=== PATIENT | female | born 1955 | race Caucasian/White ===

== ENCOUNTER 2020-01-20 12:30 | Inpatient (IN) | payer BC, MEDICARE ==
[2020-01-22 14:22] VITALS: BMI 33.4
[2020-01-24] MEDS ORDERED: metroNIDAZOLE-NS PMX 500 MG in SALINE 1 100ML.BAG IVPB PRN (05:00)
[2020-01-24] MEDS ORDERED: SCOPOLAMINE 1.5MG/72HR PATCH TRANSDERM ONE (05:49)
[2020-01-24] MEDS ORDERED: DEXAMETHASONE SOD PHOSPHATE 4 MG/ML 1 ML VIAL IV ONE (05:49)
[2020-01-24] MEDS ORDERED: ONDANSETRON 4 MG/2 ML VIAL IVP ONE ×2 (05:49→18:40)
[2020-01-24] MEDS ORDERED: MIDAZOLAM 2 MG/2 ML VIAL IV PRN (05:49)
[2020-01-24] MEDS ORDERED: HYDROmorphone 0.5 MG/0.5 ML SYRINGE IVP PRN (05:49)
[2020-01-24] MEDS ORDERED: HEPARIN SODIUM,PORCINE 5,000 UNIT/ML 1 ML VIAL SQ PRN ×2 (06:00→14:00)
[2020-01-24] MEDS: LACTATED RINGERS 1,000 ML IV SCH (13:30)
[2020-01-24 13:49] LABS: HCT 36.8 % (34.0-46.0); HGB 12.3 gm/dL (11.4-16.0); MCH 30.8 pg (25.0-35.0); MCHC 33.4 g/dL (31.0-37.0); MCV 92.3 fL (80.0-100.0); Mean Platelet Volume 6.5; Platelet Count 348 k/uL (150-450); RBC 3.98 m/uL (3.80-5.40); RDW 12.7 % (11.5-15.5); WBC 9.6 k/uL (3.8-10.6)
[2020-01-24 14:05] LABS: Potassium 3.9 mmol/L (3.5-5.1)
[2020-01-24] MEDS ORDERED: INDOCYANINE GREEN 25 MG VIAL IV ONE (14:18)
[2020-01-24] MEDS ORDERED: MIDAZOLAM 2 MG/2 ML VIAL ONE (14:18)
[2020-01-24] MEDS ORDERED: SUCCINYLCHOLINE CHLORIDE 100 MG/5 ML SYR IV ONE (14:18)
[2020-01-24] MEDS ORDERED: HYDROmorphone (PF) 1 MG/ML ONE (14:18)
[2020-01-24] MEDS ORDERED: ROCURONIUM 10 MG/ML (10 ML VIAL) IV ONE (14:18)
[2020-01-24] MEDS ORDERED: fentaNYL (PF) 50 MCG/ML 2 ML AMP ONE (14:18)
[2020-01-24] MEDS ORDERED: GLYCOPYRROLATE 0.2 MG/ML 2 ML VIAL ONE (14:18)
[2020-01-24] MEDS ORDERED: KETOROLAC 15 MG/ML 1 ML VIAL ONE (14:18)
[2020-01-24] MEDS ORDERED: NEOSTIGMINE 1 MG/ML 10 ML VIAL ONE (14:18)
[2020-01-24] MEDS ORDERED: LIDOCAINE 1% INJ 10MG/ML (20 ML MDV) ONE (14:18)
[2020-01-24] MEDS ORDERED: PROPOFOL 10 MG/ML 20 ML VIAL IV ONE (14:18)
[2020-01-24] MEDS ORDERED: LIDOCAINE 1%/EPI 1:200,000 MPF 10 ML VIAL SQ ONE ×2 (16:11)
[2020-01-24] MEDS ORDERED: BUPIVACAINE (PF) 0.25% 30 ML VIAL SQ ONE ×2 (16:11)
[2020-01-24] MEDS ORDERED: LACTATED RINGERS 1,000 ML IV ONE ×3 (16:15→19:00)
--- NOTE | 2020-01-24 17:22 | P.OP ---
Date of Procedure: 01/24/20 Preoperative Diagnosis: Sigmoid diverticular stricture Postoperative Diagnosis: Same Procedure(s) Performed: Cystoscopy with placement of 6-[place] Citizen ureteral catheter left Anesthesia: GIOVANA Surgeon: Mike Daniel Pathology: none sent Condition: stable Disposition: PACU Indications for Procedure: The patient is 64. She is in the operating suite see evening because of the need for a colectomy for severe sigmoid colonic diverticular stricture by Dr. Castellanos. Due to the severe stricture Dr. Castellanos is uncertain as to the exact location of the ureter does not wish to injure it. I've been asked to see the patient. There is no urologic history that I can obtain from the chart. The patient is asleep on the table. Description of Procedure: The patient is been previously anesthetized is on the operating table. When I arrived she is oriented in lithotomy position with cystoscopy. I pulled the Davidson catheter. I passed the 21-[place] Citizen cystoscope into the urethra is normal. The bladder tracey grossly unremarkable. The left ureteral orifice is easily identified. An 035 wires passed up the ureter into the region of the kidney. Dr. Castellanos feels the wire go through the ureter. I then over the wire pass a 6- [place] Citizen open-ended ureteral catheter with ease up. Dr. Castellanos feels the catheter go up the ureter. The cystoscope was removed. The ureteral catheter secured to the 16-[place] Citizen Davidson catheter placed in the bladder. Impression:no obvious injury of the ureter or bladder during this difficult surgical procedure. The ureteral catheter can be removed when it is deemed appropriate by Dr. Castellanos. No further urologic care should be required.
--- NOTE | 2020-01-24 18:00 | P.OP ---
Date of Procedure: 01/24/20 Preoperative Diagnosis: Diverticular stricture Postoperative Diagnosis: Diverticular stricture with dense pelvic adhesions Procedure(s) Performed: Attempted robotic sigmoid resection converted to open sigmoid resection Anesthesia: GIOVANA Surgeon: Pearl Castellanos Estimated Blood Loss (ml): 600 Pathology: other Condition: stable Disposition: PACU Indications for Procedure: The patient presented with a diverticular stricture Description of Procedure: The patient's taken to the operative suite where she is prepped and draped in the usual sterile manner under general endotracheal anesthetic. The abdomen was entered through with an optical trocar in the right mid abdomen. Pneumoperitoneum was established with CO2 gas. Sites are chosen for accessory trochars and these are laced through small skin incisions. The patient is placed into Trendelenburg position. The robot is then docked. She has some loops of small bowel adhered to the bladder and uterus. These are sharply taken down. The sigmoid colon is also densely adherent to the uterus and right tube and ovary. This tissue was attempted to be freed up. It was fairly dense a decision was made to start in the sigmoid colon more proximally and worked distally. An opening was made in the mesentery in the JAMISON stapler was placed and fired. The mesentery was taken down with harmonic scissors. Attempted to dissect the sigmoid off the tube and ovary and bleeding was encountered in the mesentery of the tube. It could not easily be controlled with the LigaSure type device. The sigmoid colon was also so stuck it wasn't going to be able to be dissected free robotically. Therefore she was undocked from the robot. The abdomen was entered through a Pfannenstiel incision. A Bookwalter retractor was placed. The small bowel was dissected free and packed out of the way in the upper abdomen. Then tediously the sigmoid colon is dissected free from the uterus, tube and ovary and pelvic sidewall. Dissection was carried out through the more distal portion of the sigmoid and off the back wall of the uterus. Dissection was carried out laterally. The ureter could not be definitively identified. Tediously the mesentery was dissected free. The sigmoidal vessels were clamped, cut and tied with 0 Vicryl suture. Dissection was then able to be carried out distally and a TA 60 was placed and fired. The specimen was passed off. The urologist, Dr. Daniel was consult intraoperatively and was kind enough to come in and place a stent in the right ureter. The ureter appeared intact and the stent was easily palpable. The proximal descending colon was then cleaned up of some mesentery and epiploic fat. A pursestring suture was placed and fired. The bowel size down nicely to 60. The anvil was placed into the proximal portion and the pursestring was tied down. Cystoscopy went down below and passed sizers and then the stapler. The attachment prong was advanced until the orange portion was seen. It was then attached to the anvil and closed down until the indicator was in the mid green portion. It was held for a minute. Fired and held for minute. It was then derotated and removed. Sterile saline was placed into the pelvis. The proximal colon was manually compressed and the distal segment of the bowel was insufflated with air multiple times showing an airtight anastomosis. The irrigant was suctioned out. A drain was placed in the pelvis and brought out through a trocar site. The fascia at the larger trocar sites was closed with 0 Vicryl. The skin incisions were closed with maycol. The peritoneum was closed with 0 Vicryl. The anterior fascia was closed with PDS. Pfannenstiel incision was closed with maycol. Sterile dressings were applied. She tolerated the procedure without difficulty and was taken recovery room in satisfactory condition. According to or personnel, all counts were correct.
[2020-01-24] MEDS ORDERED: NALOXONE 0.4 MG/ML 1 ML VIAL IV PRN (18:01)
[2020-01-24] MEDS ORDERED: HYDROmorphone 0.5 MG/0.5 ML SYRINGE IVP ONE ×2 (18:23→18:30)
[2020-01-24] MEDS: metroNIDAZOLE-NS PMX 500 MG in SALINE 1 100ML.BAG IVPB SCH (22:24)
[2020-01-24] MEDS: D5-0.45% NACL WITH KCL 20MEQ/L 1,000 ML IV SCH (22:24)
[2020-01-24] MEDS: HYDROmorphone 0.5 MG/0.5 ML SYRINGE IVP PRN (23:27)
[2020-01-24] MEDS: HEPARIN SODIUM,PORCINE 5,000 UNIT/ML 1 ML VIAL SQ SCH (23:37)
[2020-01-25] MEDS: LACTATED RINGERS 1,000 ML IV SCH (05:06)
[2020-01-25] MEDS: metroNIDAZOLE-NS PMX 500 MG in SALINE 1 100ML.BAG IVPB SCH (05:11)
[2020-01-25 06:43] LABS: Basophils % (A) 0 %; Eosinophils # (A) 0.1 k/uL (0-0.7); Eosinophils % (A) 0 %; HCT 29.7 % (34.0-46.0); HGB 10.1 gm/dL (11.4-16.0); Lymphocytes % (A) 7 %; MCH 31.1 pg (25.0-35.0); MCHC 33.9 g/dL (31.0-37.0); MCV 91.7 fL (80.0-100.0); Mean Platelet Volume 6.7; Monocytes # (A) 0.6 k/uL (0-1.0); Monocytes % (A) 4 %; Neutrophils # (A) 11.6 k/uL (1.3-7.7); Neutrophils % (A) 87 %; Platelet Count 305 k/uL (150-450); RBC 3.23 m/uL (3.80-5.40); RDW 12.3 % (11.5-15.5); WBC 13.3 k/uL (3.8-10.6)
[2020-01-25] MEDS: HYDROmorphone 0.5 MG/0.5 ML SYRINGE IVP PRN ×2 (06:51→14:33)
[2020-01-25] MEDS: D5-0.45% NACL WITH KCL 20MEQ/L 1,000 ML IV SCH ×2 (07:35→21:08)
[2020-01-25] MEDS: PANTOPRAZOLE 40 MG/10 ML VIAL IV SCH (07:35)
[2020-01-25] MEDS: HEPARIN SODIUM,PORCINE 5,000 UNIT/ML 1 ML VIAL SQ SCH ×3 (07:35→23:52)
[2020-01-25] MEDS: ONDANSETRON 4 MG/2 ML VIAL IVP PRN ×2 (07:53→14:33)
[2020-01-25 10:05] LABS: African American GFR (CKD) 90.9 (60.0-200.0); Anion Gap 6.9 mmol/L (4.00-12.00); Calcium 8.4 mg/dL (8.7-10.3); Carbon Dioxide 26.1 mmol/L (21.6-31.8); Non-African American GFR(CKD) 78.5 (60.0-200.0); Potassium 4.9 mmol/L (3.5-5.5)
[2020-01-25] MEDS ORDERED: SUMAtriptan succinate 50 MG TAB PO PRN (10:41)
[2020-01-25] MEDS ORDERED: ALBUTEROL NEBULIZED 2.5 MG/3 ML INHALATION PRN (10:41)
--- NOTE | 2020-01-25 12:44 | P.PN ---
Subjective Progress Note Date: 01/25/20 The patient is Postoperative day 1 sigmoid resection for diverticular stricture. She had a good night. She has a little nausea this morning. No chest pain or shortness of breath. Objective - Vital Signs Vital signs: Vital Signs Temp 99.0 F 01/25/20 08:00 Pulse 86 01/25/20 08:00 Resp 16 01/25/20 08:00 BP 130/80 01/25/20 08:00 Pulse Ox 90 L 01/25/20 08:00 Intake & Output 01/24/20 01/25/20 01/25/20 18:59 06:59 18:59 Intake Total 2950 800 Output Total 700 710 Balance 2250 90 Weight 77 kg 77 kg Intake: IV 2950 700 Oral 100 Output: Drainage 60 Abdomen 60 Urine 200 650 Uretheral (Davidson) 200 Estimated Blood Loss 500 Other: Voiding Method Indwelling Catheter - Constitutional General appearance: Present: cooperative, no acute distress - Respiratory Respiratory: bilateral: CTA, diminished (mildly bilaterally), negative: wheezing - Cardiovascular Rhythm: regular - Gastrointestinal General gastrointestinal: Present: decreased bowel sounds, soft Localized gastrointestinal: surgical scar: diffuse (Dressings are intact, clean and dry) - Labs CBC & Chem 7: 01/25/20 06:26 01/25/20 06:26 Labs: Abnormal Lab Results - Last 24 Hours (Table) 01/25/20 01/25/20 Range/Units 06:26 06:26 WBC 13.3 H (3.8-10.6) k/uL RBC 3.23 L (3.80-5.40) m/uL Hgb 10.1 L (11.4-16.0) gm/dL Hct 29.7 L (34.0-46.0) % Neutrophils # 11.6 H (1.3-7.7) k/uL Glucose 134 H (70-110) mg/dL Calcium 8.4 L (8.7-10.3) mg/dL Assessment and Plan (1) Diverticular stricture Current Visit: Yes Status: Acute Code(s): K56.699 - OTHER INTESTNL OBST UNSP TO PARTIAL VERSUS COMPLETE OBST SNOMED Code(s): 96144703 (2) Asthma Current Visit: Yes Status: Acute Code(s): J45.909 - UNSPECIFIED ASTHMA, UNCOMPLICATED SNOMED Code(s): 123196174 Plan: Diverticular stricture we will add Toradol for additional pain control. Add Reglan for some nausea. Bowel sounds are fairly good today. Encourage incentive spirometry. Encourage ambulation. DVT and ulcer prophylaxis. Progressing slowly. I will leave the catheter in today since there is little blood in the urine.
--- NOTE | 2020-01-25 13:48 | P.CONS ---
History of Present Illness - Reason for Consult Consult date: 01/25/20 Medical management Requesting physician: Pearl Castellanos - Chief Complaint Sigmoid resection for diverticular structure, asthma, hypothyroidism and re - History of Present Illness 63-year-old female with past medical history of asthma, hypothyroidism, migraine and recurrent diverticulitis who developed to have significant pain and discomfort with sign and symptom of diverticulitis was treated and watch she was seen Dr. Robbins back in September colonoscopy was done apparently showed severe diverticulitis patient ended up being sent for CT of the abdomen and pelvis came back with abscess from ruptured diverticuli. Patient was sent to the point to [facility] and spent 5 days on IV antibiotics and sent home on oral antibiotic for long time. Patient was seen Dr. Robbins for follow-up for to Dr. Castellanos continue to have sign and symptom of slight abdominal discomfort the left side patient ended up coming to yesterday for elective surgery which might start as a robotic for partial resection of the sigmoid ended up having open resection of the sigmoid with partial removal of diverticular structure. Patient done very well in recovery ended up being sent to the floor has been feeling much better today still nothing by mouth but no NG tube at this point. Review of Systems CONSTITUTIONAL: Well-developed no acute respiratory distress. EYES: No icterus sclerae, no conjunctivitis. EARS, NOSE, MOUTH, THROAT, and FACE: No sore throat, lymphadenopathy, carotid bruits or deformity. RESPIRATORY: No SOB cough or wheezes. History of asthma with no wheezes CARDIOVASCULAR: No CP, Palpitation, PND, Orthopnea, or angina. GASTROINTESTINAL: Significant abdominal pain from her surgical side still have drainage tube in with no bleeding. GENITOURINARY: Negative for Hematuria or UTI, no kidney stones. INTEGUMENT/BREAST: Negative for any muscular injury with mild osteoarthritis.. HEMATOLOGIC/LYMPHATIC: Negative for bleed or purpura. MUSCULOSKELTAL: Negative for Myalgia or arthralgia. NEURLOGICAL: History of migraine with no neural loss. BEHAVIORAL/PSYCH: Negative. ENDOCRINE: Negative. Past Medical History Past Medical History: Asthma, Thyroid Disorder Additional Past Medical History / Comment(s): migranes diverticulitis History of Any Multi-Drug Resistant Organisms: None Reported Past Surgical History: Appendectomy Additional Past Surgical History / Comment(s): thyroid left hemisphere removed, colonoscopy Past Anesthesia/Blood Transfusion Reactions: Postoperative Nausea & Vomiting (PONV) Past Psychological History: No Psychological Hx Reported Smoking Status: Former smoker Past Alcohol Use History: Occasional Past Drug Use History: None Reported - Past Family History Father Family Medical History: Cancer Additional Family Medical History / Comment(s): lung Medications and Allergies Home Medications Medication Instructions Recorded Confirmed Type Levothyroxine Sodium [Synthroid] 25 mcg PO DAILY 01/22/20 01/22/20 History Mometasone Inhalr 220 Mcg/Puff 1 puff INHALATION DAILY 01/22/20 01/22/20 History [Asmanex] SUMAtriptan SUCCINATE [Imitrex] 100 mg PO BID PRN 01/22/20 01/22/20 History Salmeterol 50 mcg [Serevent Diskus] 1 puff INHALATION ONCE 01/22/20 01/22/20 History Albuterol Sulfate [Proair Hfa] PRN 01/24/20 History Allergies Allergy/AdvReac Type Severity Reaction Status Date / Time No Known Allergies Allergy Verified 01/24/20 13:36 Physical Exam Vitals: Vital Signs Temp Pulse Pulse Pulse Resp BP BP 01/25/20 08:00 99.0 F 86 16 130/80 01/25/20 02:00 98.4 F 92 20 116/76 01/24/20 21:58 85 110/73 01/24/20 21:43 90 106/74 01/24/20 21:28 93 112/77 01/24/20 21:13 85 109/74 01/24/20 20:58 88 109/74 01/24/20 20:43 86 102/70 01/24/20 20:29 75 114/65 01/24/20 20:13 91 109/77 01/24/20 19:58 82 108/73 01/24/20 19:43 97.7 F 72 15 121/71 01/24/20 19:30 16 01/24/20 19:00 76 16 123/64 01/24/20 18:45 80 16 146/74 01/24/20 18:30 60 16 128/62 01/24/20 18:15 69 16 136/88 01/24/20 18:04 97.9 F 62 14 154/64 01/24/20 13:28 97.8 F 83 16 168/74 Pulse Ox 12/19/20 08:00 90 L 01/25/20 02:00 93 L 01/24/20 21:58 93 L 01/24/20 21:43 92 L 01/24/20 21:28 91 L 01/24/20 21:13 91 L 01/24/20 20:58 91 L 01/24/20 20:43 94 L 01/24/20 20:29 94 L 01/24/20 20:13 90 L 01/24/20 19:58 01/24/20 19:43 93 L 01/24/20 19:30 01/24/20 19:00 96 01/24/20 18:45 96 01/24/20 18:30 100 01/24/20 18:15 100 01/24/20 18:04 100 01/24/20 13:28 99 Intake and Output 01/24/20 01/25/20 01/25/20 22:59 06:59 14:59 Intake Total 2500 100 Output Total 750 660 Balance 1750 -560 Intake: IV 2500 Oral 100 Output: Drainage 60 Abdomen 60 Urine 250 600 Uretheral (Davidson) 200 Estimated Blood Loss 500 Other: Voiding Method Indwelling Catheter Weight 77 kg General Appearance: Alert, cooperative, no distress, appears stated age. Neck HEENT: Supple, no lymphadenopathy, no thyroid enlargement, no carotid bruits. Lungs: Clear to auscultation without crackles or wheezes no rhonchi, no deformity. Chest Wall: Chest wall normal expansion with deep inspiration no tenderness and no deformity was found on exam, no costochondral pain or discomfort. Heart: Regular rate and rhythm, S1, S2 normal, no murmur, rub or gallop. Back: Symmetric, no curvature, ROM normal, no CVA tenderness. Abdomen: Incision has lower abdominal surgical site with no sign of bleeding, right side has slight drainage tube and there is an incision smaller on the left side as well with no bleed. Extremities: Extremities normal, atraumatic, no cyanosis or edema. Pulses: 2+ and symmetric. Skin: Skin color, texture, tugor normal, no rashes or lesions. Neurologic: Alert oriented x3 cranial nerves II through XII intact, no motor deficit, no abnormal balance or gait. Results CBC & Chem 7: 01/25/20 06:26 01/25/20 06:26 Labs: Abnormal Lab Results - Last 24 Hours (Table) 01/25/20 01/25/20 Range/Units 06:26 06:26 WBC 13.3 H (3.8-10.6) k/uL RBC 3.23 L (3.80-5.40) m/uL Hgb 10.1 L (11.4-16.0) gm/dL Hct 29.7 L (34.0-46.0) % Neutrophils # 11.6 H (1.3-7.7) k/uL Glucose 134 H (70-110) mg/dL Calcium 8.4 L (8.7-10.3) mg/dL Assessment and Plan Assessment: 1 day 2 post sigmoid resection: Patient is doing well no nausea vomiting no NG tube at this point pain is well control patient Vicodin hemodynamic status very carefully watch has been stable. 2 severe diverticulitis with recurrent episode and found of diverticular st ructure post surgery doing well. 3 post acute diverticulitis with rupture and abdominal abscess post IV antibiotic for several weeks has done very well so far. 4 asthma: Patient will go back on her Serevent and albuterol inhaler. 5 hypothyroidism: Resume levothyroxine at 25 g daily. 6 history of migraine: With no flareup at this point continue Imitrex as needed. 7 DVT prophylaxis: Continue patient on heparin 5000 units subcu every 8 hours. 8 GI prophylaxis: Patient remain on pantoprazole 40 mg IV daily. CODE STATUS: Full code. Dr. Castellanos thank you very much for the consult if I can be any further help to please let me know.
[2020-01-25] MEDS: METOCLOPRAMIDE 5 MG/ML 2 ML VIAL IVP SCH ×2 (16:58→23:52)
[2020-01-25] MEDS: KETOROLAC 15 MG/ML 1 ML VIAL IVP SCH ×2 (16:58→23:52)
[2020-01-25] MEDS: FLUTICASONE 110 MCG INHALER INHALATION SCH (21:10)
[2020-01-26] MEDS: LACTATED RINGERS 1,000 ML IV SCH (04:57)
[2020-01-26] MEDS: METOCLOPRAMIDE 5 MG/ML 2 ML VIAL IVP SCH ×3 (05:44→16:56)
[2020-01-26] MEDS: KETOROLAC 15 MG/ML 1 ML VIAL IVP SCH ×3 (05:44→16:56)
[2020-01-26] MEDS: LEVOTHYROXINE 25 MCG TAB PO SCH (05:45)
[2020-01-26] MEDS: HEPARIN SODIUM,PORCINE 5,000 UNIT/ML 1 ML VIAL SQ SCH ×2 (07:00→16:55)
[2020-01-26] MEDS: PANTOPRAZOLE 40 MG/10 ML VIAL IV SCH (07:00)
[2020-01-26] MEDS: D5-0.45% NACL WITH KCL 20MEQ/L 1,000 ML IV SCH (07:00)
[2020-01-26] MEDS: FLUTICASONE 110 MCG INHALER INHALATION SCH ×2 (09:45→19:39)
--- NOTE | 2020-01-26 12:25 | P.PN ---
Subjective Progress Note Date: 01/26/20 Principal diagnosis: Diverticular stricture \\The patient is postop day 2 sigmoid resection for diverticular stricture. She is doing well. No nausea or vomiting. Pain is better controlled today. Still not doing very well with her incentive spirometer. Objective - Vital Signs Vital signs: Vital Signs Temp 98.1 F 01/26/20 07:39 Pulse 80 01/26/20 07:39 Resp 18 01/26/20 07:39 BP 124/71 01/26/20 07:39 Pulse Ox 91 L 01/26/20 07:39 Intake & Output 01/25/20 01/26/20 01/26/20 18:59 06:59 18:59 Output Total 840 480 Balance -840 -480 Output: Drainage 40 30 Abdomen 40 30 Urine 800 450 Other: Voiding Method Indwelling Catheter Indwelling Catheter - Constitutional General appearance: Present: cooperative, no acute distress - Respiratory Respiratory: bilateral: CTA, diminished (at the bases) - Cardiovascular Rhythm: regular - Gastrointestinal General gastrointestinal: Present: decreased bowel sounds, soft Localized gastrointestinal: surgical scar: diffuse (incisions intact, clean and dry. AMBAR serous. Urine clear) - Labs CBC & Chem 7: 01/25/20 06:26 01/25/20 06:26 Assessment and Plan (1) Diverticular stricture Current Visit: Yes Status: Acute Code(s): K56.699 - OTHER INTESTNL OBST UNSP TO PARTIAL VERSUS COMPLETE OBST SNOMED Code(s): 83701407 (2) Asthma Current Visit: Yes Status: Acute Code(s): J45.909 - UNSPECIFIED ASTHMA, UNCOMPLICATED SNOMED Code(s): 805007675 Plan: The urine looks clear today. The Davidson and stent will be removed. This was discussed with the nurse. AMBAR will be removed. Will increase her diet and activity as tolerated. Encouraged incentive spirometry. She is progressing slowly.
[2020-01-27] MEDS: METOCLOPRAMIDE 5 MG/ML 2 ML VIAL IVP SCH ×3 (01:56→12:33)
[2020-01-27] MEDS: KETOROLAC 15 MG/ML 1 ML VIAL IVP SCH ×3 (01:56→12:34)
[2020-01-27] MEDS: HEPARIN SODIUM,PORCINE 5,000 UNIT/ML 1 ML VIAL SQ SCH ×4 (01:56→23:03)
[2020-01-27] MEDS: D5-0.45% NACL WITH KCL 20MEQ/L 1,000 ML IV SCH ×2 (01:57→14:57)
[2020-01-27] MEDS: LACTATED RINGERS 1,000 ML IV SCH (04:43)
--- NOTE | 2020-01-27 05:29 | P.PN ---
Subjective Progress Note Date: 01/26/20 Principal diagnosis: Sigmoid resection for diverticular structure, asthma, hypothyroidism and re 63-year-old female with past medical history of asthma, hypothyroidism, migraine and recurrent diverticulitis who developed to have significant pain and discomfort with sign and symptom of diverticulitis was treated and watch she was seen Dr. Robbins back in September colonoscopy was done apparently showed severe diverticulitis patient ended up being sent for CT of the abdomen and pelvis came back with abscess from ruptured diverticuli. Patient was sent to the point to [facility] and spent 5 days on IV antibiotics and sent home on oral antibiotic for long time. Patient was seen Dr. Robbins for follow-up for to Dr. Castellanos continue to have sign and symptom of slight abdominal discomfort the left side patient ended up coming to yesterday for elective surgery which might start as a robotic for partial resection of the sigmoid ended up having open resection of the sigmoid with partial removal of diverticular structure. Patient done very well in recovery ended up being sent to the floor has been feeling much better today still nothing by mouth but no NG tube at this point. 01/25: Patient is doing very well pain is under control no bleeding from the surgical site patient is doing well she is still nothing by mouth but no NG tube at this point patient still better rested at this point which will increase physical therapy and titrate activity slightly. Objective - Vital Signs Vital signs: Vital Signs Temp 99.2 F 01/26/20 01:44 Pulse 91 01/26/20 01:44 Resp 16 01/26/20 01:44 BP 123/69 01/26/20 01:44 Pulse Ox 91 L 01/26/20 01:44 Intake & Output 01/25/20 01/25/20 01/26/20 06:59 18:59 06:59 Intake Total 800 Output Total 710 840 450 Balance 90 -840 -450 Weight 77 kg Intake: IV 700 Oral 100 Output: Drainage 60 40 Abdomen 60 40 Urine 650 800 450 Uretheral (Davidson) 200 Other: Voiding Method Indwelling Catheter Indwelling Catheter - Exam Review of Systems CONSTITUTIONAL: Well-developed no acute respiratory distress. EYES: No icterus sclerae, no conjunctivitis. EARS, NOSE, MOUTH, THROAT, and FACE: No sore throat, lymphadenopathy, carotid bruits or deformity. RESPIRATORY: No SOB cough or wheezes. History of asthma with no wheezes CARDIOVASCULAR: No CP, Palpitation, PND, Orthopnea, or angina. GASTROINTESTINAL: Significant abdominal pain from her surgical side still have drainage tube in with no bleeding. GENITOURINARY: Negative for Hematuria or UTI, no kidney stones. INTEGUMENT/BREAST: Negative for any muscular injury with mild osteoarthritis.. HEMATOLOGIC/LYMPHATIC: Negative for bleed or purpura. MUSCULOSKELTAL: Negative for Myalgia or arthralgia. NEURLOGICAL: History of migraine with no neural loss. BEHAVIORAL/PSYCH: Negative. ENDOCRINE: Negative. Medications and Allergies Home Medications Medication Instructions Recorded Confirmed Type Levothyroxine Sodium [Synthroid] 25 mcg PO DAILY 01/22/20 01/22/20 History Mometasone Inhalr 220 Mcg/Puff 1 puff INHALATION DAILY 01/22/20 01/22/20 History [Asmanex] SUMAtriptan SUCCINATE [Imitrex] 100 mg PO BID PRN 01/22/20 01/22/20 History Salmeterol 50 mcg [Serevent Diskus] 1 puff INHALATION ONCE 01/22/20 01/22/20 History Albuterol Sulfate [Proair Hfa] PRN 01/24/20 History Allergies Allergy/AdvReac Type Severity Reaction Status Date / Time No Known Allergies Allergy Verified 01/24/20 13:36 Physical Exam Vitals: Vital Signs Temp Pulse Pulse Pulse Resp BP BP 01/25/20 08:00 99.0 F 86 16 130/80 01/25/20 02:00 98.4 F 92 20 116/76 01/24/20 21:58 85 110/73 01/24/20 21:43 90 106/74 01/24/20 21:28 93 112/77 01/24/20 21:13 85 109/74 01/24/20 20:58 88 109/74 01/24/20 20:43 86 102/70 01/24/20 20:29 75 114/65 01/24/20 20:13 91 109/77 01/24/20 19:58 82 108/73 01/24/20 19:43 97.7 F 72 15 121/71 01/24/20 19:30 16 01/24/20 19:00 76 16 123/64 01/24/20 18:45 80 16 146/74 01/24/20 18:30 60 16 128/62 01/24/20 18:15 69 16 136/88 01/24/20 18:04 97.9 F 62 14 154/64 01/24/20 13:28 97.8 F 83 16 168/74 Pulse Ox 01/25/20 08:00 90 L 01/25/20 02:00 93 L 01/24/20 21:58 93 L 01/24/20 21:43 92 L 01/24/20 21:28 91 L 01/24/20 21:13 91 L 01/24/20 20:58 91 L 01/24/20 20:43 94 L 01/24/20 20:29 94 L 01/24/20 20:13 90 L 01/24/20 19:58 01/24/20 19:43 93 L 01/24/20 19:30 01/24/20 19:00 96 01/24/20 18:45 96 01/24/20 18:30 100 01/24/20 18:15 100 01/24/20 18:04 100 01/24/20 13:28 99 Intake and Output 01/24/20 01/25/20 01/25/20 22:59 06:59 14:59 Intake Total 2500 100 Output Total 750 660 Balance 1750 -560 Intake: IV 2500 Oral 100 Output: Drainage 60 Abdomen 60 Urine 250 600 Uretheral (Davidson) 200 Estimated Blood Loss 500 Other: Voiding Method Indwelling Catheter Weight 77 kg General Appearance: Alert, cooperative, no distress, appears stated age. Neck HEENT: Supple, no lymphadenopathy, no thyroid enlargement, no carotid bruits. Lungs: Clear to auscultation without crackles or wheezes no rhonchi, no deformity. Chest Wall: Chest wall normal expansion with deep inspiration no tenderness and no deformity was found on exam, no costochondral pain or discomfort. Heart: Regular rate and rhythm, S1, S2 normal, no murmur, rub or gallop. Back: Symmetric, no curvature, ROM normal, no CVA tenderness. Abdomen: Incision has lower abdominal surgical site with no sign of bleeding, right side has slight drainage tube and there is an incision smaller on the left side as well with no bleed. Extremities: Extremities normal, atraumatic, no cyanosis or edema. Pulses: 2+ and symmetric. Skin: Skin color, texture, tugor normal, no rashes or lesions. Neurologic: Alert oriented x3 cranial nerves II through XII intact, no motor deficit, no abnormal balance or gait. - Labs CBC & Chem 7: 01/25/20 06:26 01/25/20 06:26 Labs: Abnormal Lab Results - Last 24 Hours (Table) 01/25/20 01/25/20 Range/Units 06:26 06:26 WBC 13.3 H (3.8-10.6) k/uL RBC 3.23 L (3.80-5.40) m/uL Hgb 10.1 L (11.4-16.0) gm/dL Hct 29.7 L (34.0-46.0) % Neutrophils # 11.6 H (1.3-7.7) k/uL Glucose 134 H (70-110) mg/dL Calcium 8.4 L (8.7-10.3) mg/dL Assessment and Plan Assessment: 1 day 2 post sigmoid resection: Patient is doing well no nausea vomiting no NG tube at this point pain is well control patient Vicodin, patient is very stable hemodynamically 2 severe diverticulitis with recurrent episode and found of diverticular structure post surgery doing well. 3 post acute diverticulitis with rupture and abdominal abscess post IV antibiotic for several weeks has done very well so far. 4 asthma: Patient will go back on her Serevent and albuterol inhaler. 5 hypothyroidism: Resume levothyroxine at 25 g daily. 6 history of migraine: With no flareup at this point continue Imitrex as needed. 7 DVT prophylaxis: Continue patient on heparin 5000 units subcu every 8 hours. 8 GI prophylaxis: Patient remain on pantoprazole 40 mg IV daily. Will increase physical activity continue local care for the incision continue pain management patient probably will be able to be discharged sometimes on Monday.
[2020-01-27] MEDS: LEVOTHYROXINE 25 MCG TAB PO SCH (06:04)
[2020-01-27] MEDS: PANTOPRAZOLE 40 MG/10 ML VIAL IV SCH (07:03)
[2020-01-27] MEDS: FLUTICASONE 110 MCG INHALER INHALATION SCH ×2 (07:55→19:44)
--- NOTE | 2020-01-27 11:15 | P.PN ---
Subjective Progress Note Date: 01/27/20 Principal diagnosis: Diverticular stricture The patient is postop day 3 sigmoid resection for diverticular stricture. She's tolerating clear liquids until melanotic taking very much. She is passing flatus. Denies nausea or vomiting. Not doing very well with her incentive spirometry. She is getting up to the chair and using the restroom. Complaining of some swelling in her hands Objective - Vital Signs Vital signs: Vital Signs Temp 99.2 F 01/27/20 00:53 Pulse 90 01/27/20 00:53 Resp 18 01/27/20 00:53 BP 151/74 01/27/20 00:53 Pulse Ox 98 01/27/20 00:53 Intake & Output 01/26/20 01/27/20 01/27/20 18:59 06:59 18:59 Output Total 1201 20 Balance -1201 -20 Output: Drainage 20 Abdomen 20 Urine 1201 Uretheral ([place]) 1200 Other: Voiding Method Indwelling Catheter Toilet # Voids 1 3 - Constitutional General appearance: Present: cooperative, no acute distress - Respiratory Respiratory: bilateral: CTA, diminished (Mildly at the bases) - Cardiovascular Rhythm: regular - Gastrointestinal General gastrointestinal: Present: normal bowel sounds, soft Localized gastrointestinal: surgical scar: diffuse (Incisions are intact, clean and dry) - Integumentary Integumentary Comment(s): Mild swelling in her hands, no significant pitting edema in the lower extremities - Labs CBC & Chem 7: 01/25/20 06:26 01/25/20 06:26 Assessment and Plan (1) Diverticular stricture Current Visit: Yes Status: Acute Code(s): K56.699 - OTHER INTESTNL OBST UNSP TO PARTIAL VERSUS COMPLETE OBST SNOMED Code(s): 39413621 (2) Asthma Current Visit: Yes Status: Acute Code(s): J45.909 - UNSPECIFIED ASTHMA, UNCOMPLICATED SNOMED Code(s): 664700978 Plan: Increase diet and activity as tolerated. Continue to encourage her to use incentive spirometry. Encourage ambulation in the [place]. Progressing well.
--- NOTE | 2020-01-27 13:16 | P.PN ---
Subjective 63-year-old female with past medical history of asthma, hypothyroidism, migraine and recurrent diverticulitis who developed to have significant pain and discomfort with sign and symptom of diverticulitis was treated and watch she was seen Dr. Robbins back in September colonoscopy was done apparently showed severe diverticulitis patient ended up being sent for CT of the abdomen and pelvis came back with abscess from ruptured diverticuli. Patient was sent to the point to [facility] and spent 5 days on IV antibiotics and sent home on oral anti biotic for long time. Patient was seen Dr. Robbins for follow-up for to Dr. Castellanos continue to have sign and symptom of slight abdominal discomfort the left side patient ended up coming to yesterday for elective surgery which might start as a robotic for partial resection of the sigmoid ended up having open resection of the sigmoid with partial removal of diverticular structure. Patient done very well in recovery ended up being sent to the floor has been feeling much better today still nothing by mouth but no NG tube at this point. 01/25: Patient is doing very well pain is under control no bleeding from the surgical site patient is doing well she is still nothing by mouth but no NG tube at this point patient still better rested at this point which will increase physical therapy and titrate activity slightly. 01/27: Patient evaluated this morning, she is doing well, states pain is under c ontrol. Noted to have slight bleeding from the lower abdominal surgical site on the left side. Patient is tolerating clear liquids, reports she is passing some flatus. She denies any nausea or vomiting. Encouraged to use incentive spirometer and ambulation. Objective - Vital Signs Vital signs: Vital Signs Temp 99.2 F 01/27/20 00:53 Pulse 90 01/27/20 00:53 Resp 18 01/27/20 00:53 BP 151/74 01/27/20 00:53 Pulse Ox 98 01/27/20 00:53 Intake & Output 01/26/20 01/27/20 01/27/20 18:59 06:59 18:59 Output Total 1201 20 Balance -1201 -20 Output: Drainage 20 Abdomen 20 Urine 1201 Uretheral ([place]) 1200 Other: Voiding Method Indwelling Catheter Toilet # Voids 1 3 - Exam General Appearance: Alert, cooperative, no distress, appears stated age. Neck HEENT: Supple, no lymphadenopathy, no thyroid enlargement, no carotid bruits. Lungs: Clear to auscultation without crackles or wheezes no rhonchi, no deformity. Chest Wall: Chest wall normal expansion with deep inspiration no tenderness and no deformity was found on exam, no costochondral pain or discomfort. Heart: Regular rate and rhythm, S1, S2 normal, no murmur, rub or gallop. Back: Symmetric, no curvature, ROM normal, no CVA tenderness. Abdomen: Incision has lower abdominal surgical site with mild bleeding to the left side, right side has slight drainage tube and there is an incision smaller on the left side . Extremities: Extremities normal, atraumatic, no cyanosis or edema. Pulses: 2+ and symmetric. Skin: Skin color, texture, tugor normal, no rashes or lesions. Neurologic: Alert oriented x3 cranial nerves II through XII intact, no motor deficit, no abnormal balance or gait. - Labs CBC & Chem 7: 01/25/20 06:26 01/25/20 06:26 Assessment and Plan Plan: 1 day 3 post sigmoid resection: Patient is doing well no nausea vomiting, no NG tube at this point, pain is well controlled, patient is very stable hemodynamically 2 severe diverticulitis with recurrent episode and found of diverticular structure post surgery doing well. 3 post acute diverticulitis with rupture and abdominal abscess post IV antibiotic for several weeks has done very well so far. 4 asthma: Patient will go back on her Serevent and albuterol inhaler. 5 hypothyroidism: Resume levothyroxine at 25 g daily. 6 history of migraine: With no flareup at this point continue Imitrex as needed. 7 DVT prophylaxis: Continue patient on heparin 5000 units subcu every 8 hours. 8 GI prophylaxis: Patient remain on pantoprazole 40 mg IV daily. Will increase physical activity continue local care for the incision continue pain management patient probably will be able to be discharged sometimes on Monday. The above impression and plan of care have been discussed and directed by signing physician. Lanette Flynn nurse practitioner acting as scribe for juan manuel claros physician.
[2020-01-28] MEDS: D5-0.45% NACL WITH KCL 20MEQ/L 1,000 ML IV SCH (04:12)
[2020-01-28] MEDS: LACTATED RINGERS 1,000 ML IV SCH (04:12)
[2020-01-28] MEDS: LEVOTHYROXINE 25 MCG TAB PO SCH (05:50)
[2020-01-28] MEDS: PANTOPRAZOLE 40 MG/10 ML VIAL IV SCH (08:03)
[2020-01-28] MEDS: HEPARIN SODIUM,PORCINE 5,000 UNIT/ML 1 ML VIAL SQ SCH (08:03)
[2020-01-28 08:45] LABS: HCT 25.8 % (34.0-46.0); MCH 30.9 pg (25.0-35.0); MCHC 32.8 g/dL (31.0-37.0); MCV 94.2 fL (80.0-100.0); Platelet Count 380 k/uL (150-450); RBC 2.74 m/uL (3.80-5.40); RDW 12.5 % (11.5-15.5); WBC 11.3 k/uL (3.8-10.6)
[2020-01-28 08:52] LABS: HGB 8.5 gm/dL (11.4-16.0)
[2020-01-28] MEDS: FLUTICASONE 110 MCG INHALER INHALATION SCH (09:08)
--- NOTE | 2020-01-28 13:36 | P.PN ---
Subjective 63-year-old female with past medical history of asthma, hypothyroidism, migraine and recurrent diverticulitis who developed to have significant pain and discomfort with sign and symptom of diverticulitis was treated and watch she was seen Dr. Robbins back in September colonoscopy was done apparently showed severe diverticulitis patient ended up being sent for CT of the abdomen and pelvis came back with abscess from ruptured diverticuli. Patient was sent to the point to [facility] and spent 5 days on IV antibiotics and sent home on oral anti biotic for long time. Patient was seen Dr. Robbins for follow-up for to Dr. Castellanos continue to have sign and symptom of slight abdominal discomfort the left side patient ended up coming to yesterday for elective surgery which might start as a robotic for partial resection of the sigmoid ended up having open resection of the sigmoid with partial removal of diverticular structure. Patient done very well in recovery ended up being sent to the floor has been feeling much better today still nothing by mouth but no NG tube at this point. 01/25: Patient is doing very well pain is under control no bleeding from the surgical site patient is doing well she is still nothing by mouth but no NG tube at this point patient still better rested at this point which will increase physical therapy and titrate activity slightly. 01/26: Patient evaluated this morning, she is doing well, states pain is under c ontrol. Noted to have slight bleeding from the lower abdominal surgical site on the left side. Patient is tolerating clear liquids, reports she is passing some flatus. She denies any nausea or vomiting. Encouraged to use incentive spirometer and ambulation. 01/27: Patient evaluated this morning, resting in bed comfortably in no acute distress. Patient reports she's having bowel movements and passing gas. Surgical site looks good without drainage or bleeding today. She denies any pain she is tolerating solid foods without nausea or vomiting. Incentive spirometer at bedside, encouraged its use. Also encouraged ambulation in the halls, she is getting up to the bedside chair and also ambulating to the restroom. Hemoglobin did drop from 10.1-8.5 today, WBC 11.3. Vital signs are stable she is afebrile temperature 98.8, pulse 87, respiratory 21, blood pressure 146/78, 96% on room air. Objective - Vital Signs Vital signs: Vital Signs Temp 98.8 F 01/28/20 08:00 Pulse 87 01/28/20 08:10 Resp 21 01/28/20 08:10 BP 146/78 01/28/20 08:00 Pulse Ox 96 01/28/20 08:00 Intake & Output 01/27/20 01/28/20 01/28/20 18:59 06:59 18:59 Other: Voiding Method Toilet Toilet # Voids 2 # Bowel Movements 1 - Exam General Appearance: Alert, cooperative, no distress Neck HEENT: Supple, no lymphadenopathy, no thyroid enlargement, no carotid bruits. Lungs: Clear to auscultation without crackles or wheezes no rhonchi, no deformi ty. Chest Wall: Chest wall normal expansion with deep inspiration no tenderness and no deformity was found on exam, no costochondral pain or discomfort. Heart: Regular rate and rhythm, S1, S2 normal, no murmur, rub or gallop. Back: Symmetric, no curvature, ROM normal, no CVA tenderness. Abdomen: Incision has lower abdominal surgical site looks good Extremities: Extremities normal, atraumatic, no cyanosis or edema Pulses: 2+ and symmetric. Skin: Skin color, texture, tugor normal, no rashes or lesions Neurologic: Alert oriented x3 cranial nerves II through XII intact, no motor deficit, no abnormal balance or gait. - Labs CBC & Chem 7: 01/28/20 08:18 01/25/20 06:26 Labs: Abnormal Lab Results - Last 24 Hours (Table) 01/28/20 Range/Units 08:18 WBC 11.3 H (3.8-10.6) k/uL RBC 2.74 L (3.80-5.40) m/uL Hgb 8.5 L D (11.4-16.0) gm/dL Hct 25.8 L (34.0-46.0) % Assessment and Plan Plan: 1 day 3 post sigmoid resection: Patient is doing well no nausea vomiting, no NG tube at this point, pain is well controlled, patient is very stable hemodynam ically 2 severe diverticulitis with recurrent episode and found of diverticular structure post surgery doing well. 3 post acute diverticulitis with rupture and abdominal abscess post IV antibiotic for several weeks has done very well so far. 4 asthma: Patient will go back on her Serevent and albuterol inhaler. 5 hypothyroidism: Resume levothyroxine at 25 g daily. 6 history of migraine: With no flareup at this point continue Imitrex as needed. 7 DVT prophylaxis: Continue patient on heparin 5000 units subcu every 8 hours. 8 GI prophylaxis: Patient remain on pantoprazole 40 mg IV daily. Will increase physical activity continue local care for the incision continue pain management patient probably will be able to be discharged sometimes on Monday. The above impression and plan of care have been discussed and directed by signing physician. Lanette Flynn nurse practitioner acting as scribe for signing physician.
[2020-01-28 14:15] VITALS: BP 153/84; PULSE 93; RESP 19; TEMP 98.4
--- NOTE | 2020-01-28 14:55 | P.DS ---
Providers Date of admission: 01/24/20 11:53 Expected date of discharge: 01/28/20 Attending physician: Pearl Castellanos Consults: 01/24/20 18:01 Consult Physician Routine Consulting Provider: [facility] Consult Reason/Comments: medical management Do you want consulting provider notified?: Yes, Notify in am Primary care physician: Stated None - Discharge Diagnosis(es) (1) Diverticular stricture Current Visit: Yes Status: Acute (2) Asthma Current Visit: Yes Status: Acute Hospital Course: The patient presented with a diverticular stricture. She was taken to the OR where attempt was made at a robotic resection. There was significant inflammation and adhesions to the uterus, tubes, pelvic sidewall. She required open resection. She was slowly increased on her diet and activity. By 01-27 she was tolerating a diet, bowels were moving. Mild pain which was controlled without narcotic pain medicine. [place] to be stable for discharge Patient Condition at Discharge: Good Plan - Discharge Summary Discharge Rx Participant: Yes New Discharge Prescriptions: No Action Salmeterol 50 mcg [Serevent Diskus] 1 puff INHALATION ONCE Mometasone Inhalr 220 Mcg/Puff [Asmanex] 1 puff INHALATION DAILY Levothyroxine Sodium [Synthroid] 25 mcg PO DAILY SUMAtriptan SUCCINATE [Imitrex] 100 mg PO BID PRN PRN Reason: migranes Albuterol Sulfate [Proair Hfa] PRN PRN Reason: Dyspnea Discharge Medication List Levothyroxine Sodium [Synthroid] 25 mcg PO DAILY 01/22/20 [History] Mometasone Inhalr 220 Mcg/Puff [Asmanex] 1 puff INHALATION DAILY 01/22/20 [History] SUMAtriptan SUCCINATE [Imitrex] 100 mg PO BID PRN 01/22/20 [History] Salmeterol 50 mcg [Serevent Diskus] 1 puff INHALATION ONCE 01/22/20 [History] Albuterol Sulfate [Proair Hfa] PRN 01/24/20 [History] Follow up Appointment(s)/Referral(s): Pearl Castellanos DO [Doctor of Osteopathic Medicine] - 02/06/20 9:45 am Patient Instructions/Handouts: Bowel Resection (DC) Activity/Diet/Wound Care/Special Instructions: You may shower. Light dressing to the incision. No tub bath for 1 week. Easy to digest food for 1-2 weeks. Tylenol or Motrin as needed for pain. Call if questions or concerns Discharge Disposition: HOME SELF-CARE
[2020-01-28 16:43] LABS: African American GFR (CKD) 106.9 (60.0-200.0); Albumin 3.4 g/dL (3.80-4.90); Albumin/Globulin Ratio 1.7 (1.60-3.17); BUN/Creat Ratio 17.14 Ratio (12.00-20.00); Calcium 8.3 mg/dL (8.7-10.3); Non-African American GFR(CKD) 92.2 (60.0-200.0); Potassium 3.9 mmol/L (3.5-5.5); Total Bilirubin 0.4 mg/dL (0.3-1.2); Total Protein 5.4 g/dL (6.2-8.2)
[2020-01-29] MEDS ORDERED: PANTOPRAZOLE 40 MG TABLET PO SCH (09:00)
== END 2020-01-28 16:26 | disposition home or self-care (01) | DRG 331 ==
LOC: 2ORMAIN 01-24 11:53 → 4SSUR 01-24 18:04
PROVIDERS: ADMIT Surgery; ATTEND Surgery
PROC: 0T778DZ Dilation of Left Ureter with Intraluminal Device, Via Natural or Artificial Opening Endoscopic (ICD-10-PCS; 2020-01-24)
PROC: 0DBN0ZZ Excision of Sigmoid Colon, Open Approach (ICD-10-PCS; principal; 2020-01-24 14:30)
PROC: 0DJD4ZZ Inspection of Lower Intestinal Tract, Percutaneous Endoscopic Approach (ICD-10-PCS; principal; 2020-01-24 14:30)
PROC: 8E0W4CZ Robotic Assisted Procedure of Trunk Region, Percutaneous Endoscopic Approach (ICD-10-PCS; principal; 2020-01-24 14:30)
DX: K56.699 Other intestinal obstruction unspecified as to partial versus complete obstruction (principal); K57.30 Diverticulosis of large intestine without perforation or abscess without bleeding; E89.0 Postprocedural hypothyroidism; J45.909 Unspecified asthma, uncomplicated; G43.909 Migraine, unspecified, not intractable, without status migrainosus; R31.9 Hematuria, unspecified; Z79.890 Hormone replacement therapy; Z79.899 Other long term (current) drug therapy; Z87.891 Personal history of nicotine dependence; Z90.49 Acquired absence of other specified parts of digestive tract; Z82.49 Family history of ischemic heart disease and other diseases of the circulatory system; Z80.1 Family history of malignant neoplasm of trachea, bronchus and lung
CPT/HCPCS: 80048; 80051; 80053; 85025; 85027; 86850; 86900; 86901; 88307; 94640